=== PATIENT | male | born 1970 | race African-American/Black ===

== ENCOUNTER 2017-09-07 20:49 | Emergency (ER) | payer SELFPAY ==
[~2017-09-07] VITALS: Ht 175.3 cm; Wt 77.3 kg
[2017-09-07 20:51] VITALS: BP 120/81; PULSE 97; RESP 16; TEMP 98.2; O2SAT 97
--- NOTE | 2017-09-07 21:39 | RADRPT ---
EXAM DATE/TIME: 09/07/2017 21:12 [facility] COMPARISON: No previous studies available for comparison. INDICATIONS : Left knee pain after fall. MEDICAL HISTORY : None. SURGICAL HISTORY : None. ENCOUNTER: Initial ACUITY: 1 day PAIN SCORE: 10/10 LOCATION: Left knee. FINDINGS: Multiple views of the knee show joint space narrowing with periarticular sclerotic change and osteoph yte production. No fracture or dislocation. Small joint effusion. Soft tissues are unremarkable. CONCLUSION: Advanced tricompartmental osteoarthritis. Small joint effusion. Papo Noriega Jr., MD on September 07, 2017 at 21:37 Board Certified Radiologist. This report was verified electronically.
[2017-09-07] MEDS ORDERED: KETOROLAC TROMETHAMINE 60 MG/2 ML (IM) VIAL IM ONE (22:45)
--- NOTE | 2017-09-07 23:49 | RADRPT ---
EXAM DATE/TIME: 09/07/2017 23:09 [facility] COMPARISON: No previous studies available for comparison. INDICATIONS : Left hip pain. No known trauma. MEDICAL HISTORY : None. SURGICAL HISTORY : None. ENCOUNTER: Initial ACUITY: 1 day PAIN SCORE: 8/10 LOCATION: Left hip. FINDINGS: Examination of the left hip was performed with AP Pelvis. The primary and secondary trabecular patte rn of the femoral neck is intact. The hip joint is of normal width without significant sclerosis or bony hypertrophy. The acetabulum is grossly intact. CONCLUSION: 1. Negative examination of the hip. Eric Ward MD on September 07, 2017 at 23:47 Board Certified Radiologist. This report was verified electronically.
[2017-09-08] MEDS ORDERED: HYDR-3533 PO (00:45)
--- NOTE | 2017-09-08 00:45 | PD ---
HPI Chief Complaint: Musculoskeletal Complaint Time Seen by Provider: 22:36 Travel History International Travel<30 days: No Contact w/Intl Traveler<30days: No Traveled to known affect area: No History of Present Illness HPI 46yo M with no PMH presents to the ED with c/o left hip and knee pain s/p fall today. Said he step on the curb and twisted his knee and fell. Pain is mainly in left knee. Denies any focal weakness or numbness. Denies any head trauma, LOC, chest pain, sob, n/v, abdominal pain. PFSH Past Medical History Medical History: Denies Significant Hx Tetanus Vaccination: < 5 Years Influenza Vaccination: No Past Surgical History Surgical History: No Previous Surgery Social History Alcohol Use: No Tobacco Use: No Substance Use: No Allergies-Medications (Allergen,Severity, Reaction): Coded Allergies: No Known Allergies (Unverified , 09/07/17) Reported Meds & Prescriptions Reported Meds & Active Scripts Active No Active Prescriptions or Reported Medications Review of Systems Except as stated in HPI: all other systems reviewed are Neg Physical Exam Narrative GENERAL: 46yo M in mild distress. SKIN: Focused skin assessment warm/dry. HEAD: Atraumatic. Normocephalic. EYES: Pupils equal and round. No scleral icterus. No injection or drainage. ENT: No nasal bleeding or discharge. Mucous membranes pink and moist. NECK: Trachea midline. No JVD. CARDIOVASCULAR: Regular rate and rhythm. No murmur appreciated. RESPIRATORY: No accessory muscle use. Clear to auscultation. Breath sounds equal bilaterally. GASTROINTESTINAL: Abdomen soft, non-tender, nondistended. MUSCULOSKELETAL: LLE: +TTP left hip. +TTP diffusely in left knee with mild swelling. Distal pulses intact. Sensation intact. NEUROLOGICAL: Awake and alert. No obvious cranial nerve deficits. Motor grossly within normal limits. Normal speech. PSYCHIATRIC: Appropriate mood and affect; insight and judgment normal. Data Data Last Documented VS Vital Signs Date Time Temp Pulse Resp B/P (MAP) Pulse Ox O2 Delivery O2 Flow Rate FiO2 09/07/17 20:51 98.2 97 16 120/81 (94) 97 Room Air Orders Orders Knee, Complete (4vws) (09/07/17 ) Ketorolac Inj (Toradol Inj) (09/07/17 22:45) Hip, Uni(Ap&Lat) W Ap Pelvis (09/07/17 ) MDM Medical Decision Making Medical Screen Exam Complete: Yes Emergency Medical Condition: Yes Differential Diagnosis Left knee contusion vs. fracture vs. ligament injury Narrative Course 46yo M with left knee and hip pain s/p mechanical fall today. Xray left hip negative. Xray left knee showed advanced tricompartmental osteoarthritis. Small joint effusion. Pt given toradol for pain. Knee placed in immobilizer. Given the extent of osteoarthritis, will refer pt to orthopedic for further management. Return precautions given. Diagnosis Primary Impression: Osteoarthritis Qualified Codes: M17.12 - Unilateral primary osteoarthritis, left knee Referrals: Errol Galicia MD call for appointment Patient Instructions: General Instructions Departure Forms: Tests/Procedures Additional Instructions: Please follow up with orthopedic surgery if you continue to have pain in your left knee. Return to the ED if symptoms worsen. Med/Other Pt SpecificInfo: Prescription(s) given Scripts Hydrocodone-Acetaminophen (Lortab) 5-325 Mg Tab 1 TAB PO Q6H Y for PAIN, #7 TAB 0 Refills Prov: Kelin Lozano DO 09/08/17 Disposition: 01 DISCHARGE HOME Condition: Stable Kelin Lozano DO Sep 08, 2017 00:45
[2017-09-08] MEDS ORDERED: ACETAMINOPHEN/HYDROcodone 325 MG/5 MG TAB PO ONE (01:15)
== END 2017-09-08 06:07 | disposition home or self-care (01) ==
LOC: NEPD 20:49
DX: M17.12 Unilateral primary osteoarthritis, left knee (principal); M25.462 Effusion, left knee; M25.552 Pain in left hip; W18.39XA Other fall on same level, initial encounter; X50.1XXA Overexertion from prolonged static or awkward postures, initial encounter
CPT/HCPCS: 73502; 73564; 96372; 99284; E0113; J1885